=== PATIENT | female | born 1975 ===

== ENCOUNTER 2019-08-20 06:19 | Day surgery (SDC) | payer BC ==
[2019-08-18 12:12] VITALS: BMI 28.7
--- NOTE | 2019-08-19 10:04 | P.HPIHPCON ---
History of Present Illness H&P Date: 08/20/19 Chief Complaint: Stress urinary inconetnince Ms. Pinon is a 44 yo female with hx of stress urinary incontinence. On examination she had a positive stress test, and she is symptomatic from her urinary incontinence. I discussed with her the option of mid urethral sling vs Kegel exercise. I discussed with her the option of synthetic sling vs autologus sling. Discussed risk and benefit of each approach. She elected to proceed with synthetic sling using mesh. I discussed with her risk which include but not limited to bleeding, infection, continue stress incontinence, Injury to the bladder, injury to urethra. Discussed risk of chronic thigh pain. Discussed with her risk from mesh which include mesh erosion to the bladder, urethra and vagina. Also discussed risk from anesthesia which include heart attack, strokes, blood clots and even loss of life. Consent for Procedure: I have explained the operation/procedure to the patient, including the risks, benefits, side effects, alternative therapies (including not receiving the prop osed treatment or service), the likelihood of the patient achieving his/her goals, and potential recuperation problems for the procedure/sedation/analgesia, as well as any blood products, if indicated. I also explained to the patient the risks, benefits and side effects of the alternatives, as well as the risks related to not receiving the proposed procedure, care, treatment, or services. - Constitutional Constitutional: Denies chills, Denies fatigue, Denies fever - Cardiovascular Cardiovascular: Denies chest pain, Denies dyspnea on exertion - Respiratory Respiratory: Denies cough, Denies dyspnea - Gastrointestinal Gastrointestinal: Denies abdominal pain, Denies constipation, Denies nausea, Denies vomiting Past Medical History Past Medical History: Thyroid Disorder Additional Past Medical History / Comment(s): Vertigo, ear infections. Bladder leakage. Sl varicose veins. History of Any Multi-Drug Resistant Organisms: None Reported Additional Past Surgical History / Comment(s): Dental proc Past Anesthesia/Blood Transfusion Reactions: Motion Sickness Smoking Status: Former smoker - Past Family History Mother Family Medical History: No Reported History Medications and Allergies Home Medications Medication Instructions Recorded Confirmed Type Acetaminophen [Tylenol Extra 500 - 1,000 mg PO Q8H PRN 08/18/19 08/18/19 History Strength] Levothyroxine Sodium [Synthroid] 100 mcg PO DAILY 08/18/19 08/18/19 History Multivitamins, Thera [Multivitamin 1 tab PO DAILY 08/18/19 08/18/19 History (formulary)] Vitamin C (Unknown Dose) 1 tab PO DAILY 08/18/19 History Allergies Allergy/AdvReac Type Severity Reaction Status Date / Time No Known Allergies Allergy Verified 08/18/19 11:53 Surgical - Exam - General well developed, well nourished, no distress, no pain - Respiratory normal expansion, normal respiratory effort - Abdomen Abdomen: soft, non tender Assessment and Plan Assessment: 44 yo female with hx of YVON -Transobturator sling
[~2019-08-20 06:19] MED LIST: DEXAMETHASONE SOD PHOSPHATE 10 MG/ML 1 ML VIAL IV ONE; HYDROmorphone 0.5 MG/0.5 ML SYRINGE IVP PRN; MIDAZOLAM 2 MG/2 ML VIAL IV PRN; ONDANSETRON 4 MG/2 ML VIAL IVP ONE; SCOPOLAMINE 1.5MG/72HR PATCH TRANSDERM ONE
[2019-08-20] MEDS ORDERED: LACTATED RINGERS 1,000 ML IV ONE ×2 (06:54→09:05)
[2019-08-20] MEDS ORDERED: LIDOCAINE 1% 20 ML VIAL (10MG/ML) FOR IV START INTRADERMA ONE (06:54)
[2019-08-20] MEDS ORDERED: LIDOCAINE 1% INJ 10MG/ML (20 ML MDV) ONE (07:26)
[2019-08-20] MEDS ORDERED: SUCCINYLCHOLINE CHLORIDE 100 MG/5 ML SYR IV ONE (07:26)
[2019-08-20] MEDS ORDERED: ePHEDrine SULFATE/0.9% NACL/PF 50 MG/5 ML SYRINGE IV ONE (07:26)
[2019-08-20] MEDS ORDERED: MIDAZOLAM 2 MG/2 ML VIAL ONE (07:26)
[2019-08-20] MEDS ORDERED: PROPOFOL 10 MG/ML 20 ML VIAL IV ONE (07:26)
[2019-08-20] MEDS ORDERED: fentaNYL (PF) 50 MCG/ML 2 ML AMP ONE (07:26)
[2019-08-20] MEDS ORDERED: GENTAMICIN 80 MG in SODIUM CHLORIDE 0.9% 500 ML 500 ML IRRIGATION ONE (08:00)
[2019-08-20] MEDS ORDERED: BACITRACIN 500 UNIT/GM OINT 28.4 GM TUBE TOPICAL ONE (08:09)
[2019-08-20] MEDS ORDERED: LIDOCAINE 1%-EPI 1:100,000 20 ML VIAL SQ ONE (08:09)
[2019-08-20] MEDS ORDERED: KETOROLAC 30 MG/ML 1 ML VIAL IVP PRN (09:09)
--- NOTE | 2019-08-20 09:19 | P.OP ---
Date of Procedure: 08/20/19 Preoperative Diagnosis: Stress urinary incontinence Postoperative Diagnosis: same Procedure(s) Performed: Transobturator sling, cystoscopy Implants: Transobturator mesh sling Anesthesia: PRADIP Surgeon: Bayron Phelps Sample Case Porter #1: Randy Nicholas Pathology: none sent Condition: stable Disposition: PACU Indications for Procedure: Ms. Pinon is a 44 yo female with hx of stress urinary incontinence. On examination she had a positive stress test, and she is symptomatic from her urinary incontinence. I discussed with her the option of mid urethral sling vs Kegel exercise. I discussed with her the option of synthetic sling vs autologus sling. Discussed risk and benefit of each approach. She elected to proceed with synthetic sling using mesh. I discussed with her risk which include but not limited to bleeding, infection, continue stress incontinence, Injury to the bladder, injury to urethra. Discussed risk of chronic thigh pain. Discussed with her risk from mesh which include mesh erosion to the bladder, urethra and vagina. Also discussed risk from anesthesia which include heart attack, strokes, blood clots and even loss of life. Operative Findings: Normal cysto Description of Procedure: The patient was taken to the operating room and placed in the dorsal lithotomy position, with her legs supported in Flakito stirrups. The perineum, lower abdomen, and vagina were prepped and draped sterilely. A 16-Faroese Valderrama catheter was placed. [Silk sutures were placed to retract the labia laterally on each side. ]1 % lidocaine with epinephrine was injected submucosally within the anterior vaginal wall, over the urethra. The scalpel was then used to make an anterior midline vaginal incision over the urethra. Metzenbaum scissors were used to dissect laterally within the submucosal plane, to the inferior pubic ramus. The scalpel was used to make bilateral groin incisions at the level of the clitoris. Subcutaneous tissues were spread with a hemostat. Each of the helical needles were passed through the respective groin incision, and turned such that the needle tip wrapped around the pubis. The needle tips were guided digitally into the vaginal incision. The Obturator sling graft, which had been previously soaked in antibiotic solution, was secured to the needle tips in the standard fashion. The needles were then withdrawn, and the position of the graft was adjusted such that it overlie the mid urethra, as desired, ensuring it's not to tight. The plastic sheath was removed from the ends of the graft. The ends of the graft were cut beneath the skin incisions, and these incisions were closed using 4-0 Vicryl suture in a subcuticular fashion. Hemostasis within the vaginal incision was adequate, and the vaginal incision was closed using 2-0 Vicryl suture in a running fashion. Cystoscopy was performed. The 30 lens was used to introduce the 19-Faroese Storz cystoscopic sheath through the urethra and into the bladder under direct vision. The urethra and bladder were unremarkable. There was no evidence of perforation. Both ureteral orifices were of normal anatomic location and configuration, and clear urine effluxed from both. No tumors or foreign bodies were seen. The cystoscope was removed, and the Valderrama catheter was replaced into the bladder. Vaginal packing was placed. All sponge and needle counts were correct. The patient tolerated the procedure well was taken to the recovery room in stable condition.
[2019-08-20] MEDS: LACTATED RINGERS 1,000 ML IV SCH (11:47)
[2019-08-20] MEDS: DEXTROSE 5%-0.45% NACL 1,000 ML IV SCH (14:22)
[2019-08-20] MEDS: HEPARIN SODIUM,PORCINE 5,000 UNIT/ML 1 ML VIAL SQ SCH (17:25)
[2019-08-20] MEDS: HYDROcodone/APAP 5-325MG 1 EACH TAB PO PRN (19:33)
[2019-08-21] MEDS: DEXTROSE 5%-0.45% NACL 1,000 ML IV SCH ×2 (00:03→11:53)
[2019-08-21] MEDS: HEPARIN SODIUM,PORCINE 5,000 UNIT/ML 1 ML VIAL SQ SCH ×2 (00:04→07:43)
[2019-08-21] MEDS: LACTATED RINGERS 1,000 ML IV SCH (05:43)
[2019-08-21] MEDS ORDERED: BENZOCAINE/MENTHOL LOZENG 1 EACH LOZENGE MUCOUS MEM PRN (07:44)
[2019-08-21] MEDS ORDERED: CIPROFLOXACIN HCL 500 MG TAB PO STA (08:16)
[2019-08-21 08:36] VITALS: BP 109/76; PULSE 53; RESP 12; TEMP 98
[2019-08-21] MEDS ORDERED: LEVOTHYROXINE 100 MCG TAB PO SCH (09:00)
--- NOTE | 2019-08-21 10:15 | P.PN ---
Subjective Progress Note Date: 08/21/19 Principal diagnosis: YVON No acute overnight event, pain is controlled, tolerating diet. Valderrama and vaginal pack removed this am. Objective - Vital Signs Vital signs: Vital Signs Temp 98 F 08/21/19 07:00 Pulse 53 L 08/21/19 07:00 Resp 12 08/21/19 07:00 BP 109/76 08/21/19 07:00 Pulse Ox 99 08/21/19 07:00 Intake & Output 08/20/19 08/21/19 08/21/19 18:59 06:59 18:59 Intake Total 1451 262.5 Output Total 2950 1000 400 Balance -1499 -737.5 -400 Weight 94.7 kg Intake: IV 1251 Intake, IV Titration 262.5 Amount Dextrose 5%-0.45% NaCl 1, 262.5 000 ml @ 75 mls/hr IV . [id number] JOSÉ Rx#:[id number] Oral 200 Output: Urine 2900 1000 400 Uretheral (Valderrama) 1500 300 Estimated Blood Loss 50 Other: Voiding Method Indwelling Catheter Indwelling Catheter Toilet # Voids 1 - Constitutional General appearance: Present: no acute distress - Gastrointestinal General gastrointestinal: Present: soft. Absent: distended, rigid - Psychiatric Psychiatric: Present: A&O x's 3 Assessment and Plan Assessment: 44 yo female with hx of YVON, S/P transobturator sling -F/U PVR -Pain control -Discharge home today
--- NOTE | 2019-08-21 10:18 | P.DS ---
Providers Date of admission: 08/20/19 Expected date of discharge: 08/21/19 Attending physician: Bayron Phelps MD Primary care physician: [place] Course: 44 yo female with hx of YVON. She underwent Transobturator sling on 08/20. Please see op noted dated 08/20 for surgery date. She was admitted post operatively. Vaginal pack and swenson removed on POD #1. She was discharged home on POD #1. At time of discharge she was tolerating a diet, ambulating and voiding w/o issues Plan - Discharge Summary Discharge Rx Participant: Yes New Discharge Prescriptions: No Action Levothyroxine Sodium [Synthroid] 100 mcg PO DAILY Acetaminophen [Tylenol Extra Strength] 500 - 1,000 mg PO Q8H PRN PRN Reason: Pain Multivitamins, Thera [Multivitamin (formulary)] 1 tab PO DAILY Vitamin C (Unknown Dose) 1 tab PO DAILY Discharge Medication List Acetaminophen [Tylenol Extra Strength] 500 - 1,000 mg PO Q8H PRN 08/18/19 [History] Levothyroxine Sodium [Synthroid] 100 mcg PO DAILY 08/18/19 [History] Multivitamins, Thera [Multivitamin (formulary)] 1 tab PO DAILY 08/18/19 [History] Vitamin C (Unknown Dose) 1 tab PO DAILY 08/18/19 [History] Patient Instructions/Handouts: *Surgery [facility] - Scopalamine Patch Instructions Activity/Diet/Wound Care/Special Instructions: Drink plenty of fluid No heavy lifting or straining for 4 weeks You can use tylenol for pain, You may notice some vaginal spotting Limit your activity for the first week after surgery No intercourse for 4 weeks Discharge Disposition: HOME SELF-CARE
[2019-08-21] MEDS: HYDROcodone/APAP 5-325MG 1 EACH TAB PO PRN (11:41)
== END 2019-08-21 12:22 | disposition home or self-care (01) ==
LOC: OR 06:19 → 4SSUR 11:28 → OR 08-21 12:22
PROVIDERS: ATTEND Urology
DX: N39.3 Stress incontinence (female) (male) (principal); E07.9 Disorder of thyroid, unspecified; I83.90 Asymptomatic varicose veins of unspecified lower extremity; Z87.891 Personal history of nicotine dependence; Z79.890 Hormone replacement therapy
CPT/HCPCS: 81025; 57288; C1771; J2250; J1580; J1100; J0690; J2405; J2001; J3010; J1885; J0330; J2704

== ENCOUNTER → 2024-04-30 | Outpatient (CLI) | payer BC ==
[2024-04-30 15:19] VITALS: BP 133/79; PULSE 58; RESP 16; TEMP 97.9
--- NOTE | 2024-04-30 16:02 | P.SLEEP ---
History of Present Illness DATE: 04/30/2024 CONSULTATION/NEW PATIENT EVALUATION HISTORY OF PRESENT ILLNESS/SLEEP-WAKE EVALUATION: 49-year-old lady had been e valuated in the sleep center for possible obstructive sleep apnea hypopnea syndrome. SLEEP SCHEDULE: Usually sleep schedule from 11 PM to 6 AM on weekdays and until 78 AM on weekend. FALLING ASLEEP: No problems with falling asleep. DURING SLEEP: Patient has loud snoring, witnessed episodes of stop breathing during the sleep. Patient grind her teeth. Patient wakes up from sleep 2 times with 1 episode of nocturia. Peripheral position during the sleep on the side and stomach. No history of hypnogogical hallucinations, sleep paralysis, or cataplexy. DURING THE DAY/WAKE STATE: In the morning patient wake up tired, has episodes of irritability. [place] sleepiness scale is 4. Usually patient does not take naps. PAST MEDICAL HISTORY: Hypothyroidism. PAST SURGICAL HISTORY: Bladder suspension. MEDICATIONS: Please see below. SOCIAL HISTORY: Please see below. FAMILY HISTORY: Hypertension, headaches, acid reflux, thyroid problems. REVIEW OF SYSTEMS: Loud snoring, witnessed episodes of stop breathing during the sleep. No fevers. No double vision. No recent chest pain. No shortness of breath. No abdominal pain. No bleeding episodes. No blood in urine. No seizure episodes. PHYSICAL EXAMINATION: GENERAL: A pleasant patient without any distress. VITAL SIGNS: Please see below, weight 220 pounds, BMI 32.4. HEENT: PERRLA, EOMI. Evaluation of oropharynx showed tongue protrudes midline, low position of soft palate Mallampati 4. NECK: Supple. No JVD. Thyroid is not palpable. 16.5 inches in circumference. LUNGS: Clear to percussion and to auscultation. Good air exchange. No wheezing or rhonchi. HEART: S1, S2 regular. No murmurs, gallops or rubs. ABDOMEN: Soft and nontender. Bowel sounds are present. No organomegaly appreciated. EXTREMITIES: No clubbing or cyanosis. BATTERY CONTAINER TESTER: Awake, alert, and oriented x3. Cranial nerves 2 to 7 intact. There is no fasciculation or atrophy noted. No focal deficits observed. ASSESSMENT: 1. Loud snoring, witnessed episodes of stop breathing during the sleep, extremely low position of soft palate Mallampati 4, wide neck 16.5 inches in circumference. Obstructive sleep apnea hypopnea syndrome. 2. Mild obesity BMI 32.4. 3. Hypothyroidism. 4. Status post bladder suspension. PLAN: 1. Home sleep apnea test for evaluation of patient's breathing during sleep. 2. Following plan after reading sleep study. 3. Preferable position during sleep on the side. 4. No driving if patient feels any sleepiness. Patient is aware of civil and criminal liability for unsafe driving. 5. Sleep hygiene with regular sleep time for at least 7.5-8 hours. 6. Watching weight and losing. Thank you very much for referring this patient for consultation. Sincerely, Solomon Izquierdo MD, PhD, FAASM. Diplomat of [place], Sleep Medicine Board by [place] [place] Production Quality Analyst of [facility] [place] cc: Rayna Osborne MD Past Medical History Past Medical History: Thyroid Disorder Additional Past Medical History / Comment(s): Vertigo, ear infections. Bladder leakage. Sl varicose veins. History of Any Multi-Drug Resistant Organisms: None Reported Past Surgical History: Bladder Surgery Additional Past Surgical History / Comment(s): Dental proc Past Anesthesia/Blood Transfusion Reactions: Motion Sickness Past Psychological History: No Psychological Hx Reported Smoking Status: Never smoker Past Alcohol Use History: Occasional Additional Past Alcohol Use History / Comment(s): Smoked briefly at age 17 Past Drug Use History: None Reported - Past Family History Mother Family Medical History: Neurologic Disorder, Thyroid Disorder Additional Family Medical History / Comment(s): headaches, Neurologic (Parkinsons) Father Family Medical History: GERD/Reflux, Hypertension Medications and Allergies Home Medications Medication Instructions Recorded Confirmed Type Acetaminophen [Tylenol Extra 500 - 1,000 mg PO Q8H PRN 08/18/19 08/18/19 History Strength] Levothyroxine Sodium [Synthroid] 100 mcg PO DAILY 08/18/19 04/30/24 History Multivitamins, Thera [Multivitamin 1 tab PO DAILY 08/18/19 08/18/19 History (formulary)] Vitamin C (Unknown Dose) 1 tab PO DAILY 08/18/19 History Cephalexin [Keflex] 500 mg PO Q8HR 3 Days #9 cap 08/21/19 Rx traMADol HCL [Ultram] 50 mg PO Q6HR PRN 3 Days #10 tab 12/20/19 Rx Allergies Allergy/AdvReac Type Severity Reaction Status Date / Time No Known Allergies Allergy Verified 08/18/19 11:53 Physical Exam Vitals: Vital Signs Temp Pulse Resp BP Pulse Ox 04/30/24 15:17 97.9 F 58 L 16 133/79 99 Intake and Output 04/30/24 04/30/24 04/30/24 06:59 14:59 22:59 Other: Weight 99.79 kg Sleep Note - Sleep Data ESS Total: 4 - Sleep Note Sleep Note: Temperature: 97.9 F Pulse Rate: 58 Respiratory Rate: 16 Blood Pressure: 133/79 SpO2: 99 Height: 5 ft 9 in Weight: 99.79 kg BMI: Neck Circumference: 16.5
== END ==
LOC: 3 N SLEEP 15:02
PROVIDERS: ATTEND Internal Medicine
CPT/HCPCS: 99211

== ENCOUNTER → 2024-05-12 | Outpatient (CLI) | payer BC ==
--- NOTE | 2024-05-14 11:36 | P.PCN ---
Description of Procedure: CLINICAL: A home sleep apnea test has been done for confirmation of possible obstructive sleep apnea-hypopnea syndrome. DESCRIPTION OF PROCEDURE: RESULTS: Recording time was 7 hours 27 minutes. Evaluation time was 7 hours 15 minutes. Evaluation time is sufficient for making conclusion about results of the test. Raw data of sleep recording has been reviewed and is adequate. Respiratory channel showed 22 apneas and 111 hypopneas. Apnea-hypopnea index was 18.3 per hour. Pulse rate in the range between minimum 41, maximum 102, average 58 by computer calculation. Lowest desaturation was 72%. IMPRESSION: 1. Moderate Obstructive Sleep Apnea Hypopnea Syndrome with severe oxygen desaturation. Please see other impressions from consultation. PLAN: 1. The patient will be started on auto-PAP treatment for correction of respiratory abnormallities during sleep. 2. I will see patient for follow up visit to discuss results of the test, evaluate clinical response on treatment with PAP therapy and make any necessary adjustments related to mask fitting, pressure, and humidification. 3. Watching and losing weight. 4. Sleep hygiene with regular time in bed for at least 8 hours. 5. No driving if feeling any sleepiness. Thank you very much for allowing me to participate in the management of your patient. Sincerely, Solomon Izquierdo MD, PhD, FAASM Diplomat of [employer] Sleep Medicine Board of [employer] Cabinetmaker Helper [facility] [place] cc: Dylon Way MD
== END ==
LOC: 3 N SLEEP 16:36
PROVIDERS: ATTEND Internal Medicine